=== PATIENT | male | born 1965 | race Asian ===

== ENCOUNTER 2019-01-06 08:45 | Observation (INO) | payer BC ==
[~2019-01-06] VITALS: Ht 167.6 cm; Wt 65.3 kg
[2019-01-06] MEDS ORDERED: ASPIRIN 325 MG TAB PO STA (08:57)
[2019-01-06] MEDS ORDERED: LOSA25TA12 PO (09:41)
[2019-01-06] MEDS ORDERED: FEBU40TA PO (09:42)
--- NOTE | 2019-01-06 10:13 | ERD ---
ER Documentation Chief Complaint Chief Complaint chest/shoulder pain x 5 hours HPI 53-year-old male presents the emergency department complaining of chest and shoulder pain. Patient states that he was awoken from sleep at 3 in the morning with a nonspecific, non-provoked chest pain. Pain radiated to his left shoulder and made him feel short of breath. He reported a sense of palpitations. He reported no diaphoresis or nausea. His symptoms continued and he came to the emergency department this morning for evaluation. Upon arrival, patient reports the pain is mild to moderate, but still there. ROS All systems reviewed and are negative except as per history of present illness. Medications Home Meds Reported Medications Febuxostat* (Uloric*) 40 Mg Tablet, 40 MG PO DAILY 01/06/19 Losartan Potassium* (Losartan Potassium*) 25 Mg Tablet, 25 MG PO DAILY, TAB 01/06/19 Allergies Allergies: Coded Allergies: ibuprofen (Verified Allergy, Severe, ITCHING , 01/06/19) PER PT PMhx/Soc History of Surgery: Yes (tonsillectomy) Anesthesia Reaction: No Hx Neurological Disorder: No Hx Respiratory Disorders: No Hx Cardiac Disorders: No Hx Psychiatric Problems: No Hx Miscellaneous Medical Probl: Yes (CKD, GOUT) Hx Alcohol Use: No Hx Substance Use: No Hx Tobacco Use: No Smoking Status: Never smoker FmHx Noncontributory for chief complaint Physical Exam Vitals Vital Signs Date Temp Pulse Resp B/P (MAP) Pulse Ox O2 O2 Flow FiO2 Time Delivery Rate 01/06/19 81 20 119/99 100 Room Air 09:00 (106) 01/06/19 98.2 92 22 179/86 100 08:49 (117) Physical Exam GENERAL: The patient is well developed and appropriate for usual state of health in no apparent distress HEENT: Pupils equal, round, and reactive to light. EOMI. There is no scleral icterus. NECK: C-spine is soft and supple, there is no meningismus. There is no cervical lymphadenopathy. LUNGS: Clear to auscultation bilaterally. There are no rales, wheezes or rhonchi. HEART: Regular rate and rhythm, no murmurs, clicks, rubs or gallops. ABDOMEN: Soft, non-tender, non-distended. There are bowel sounds in all four quadrants. No rebound or guarding. EXTREMITIES: There is no peripheral cyanosis or edema. No focal swelling or erythema. NEURO: The patient moves all four extremities with 5/5 strength. Cranial nerves II - XII are intact. Normal gait. Alert and oriented SKIN: There is no apparent rash or petechiae. HEME/LYMPHATIC: There is no evidence of excessive bruising or lymphedema. PSYCHIATRIC: The patient does not appear anxious or depressed. Result Diagram: 01/06/19 0916 01/06/19 0916 Results 24 hrs Laboratory Tests Test 01/06/19 09:16 White Blood Count 4.6 10^3/ul Red Blood Count 5.51 10^6/ul Hemoglobin 16.0 g/dl Hematocrit 49.1 % Mean Corpuscular Volume 89.1 fl Mean Corpuscular Hemoglobin 29.0 pg Mean Corpuscular Hemoglobin Concent 32.6 g/dl Red Cell Distribution Width 11.7 % Platelet Count 201 10^3/UL Mean Platelet Volume 10.4 fl Immature Granulocytes % 0.200 % Neutrophils % 63.4 % Lymphocytes % 28.7 % Monocytes % 6.6 % Eosinophils % 0.7 % Basophils % 0.4 % Nucleated Red Blood Cells % 0.0 /100WBC Immature Granulocytes # 0.010 10^3/ul Neutrophils # 2.9 10^3/ul Lymphocytes # 1.3 10^3/ul Monocytes # 0.3 10^3/ul Eosinophils # 0.0 10^3/ul Basophils # 0.0 10^3/ul Nucleated Red Blood Cells # 0.0 10^3/ul Sodium Level 142 mmol/L Potassium Level 3.9 mmol/L Chloride Level 103 mmol/L Carbon Dioxide Level 26 mmol/L Anion Gap 13 Blood Urea Nitrogen 22 mg/dl Creatinine 1.44 mg/dl Est Glomerular Filtrat Rate mL/min 51 mL/min Glucose Level 109 mg/dl Calcium Level 9.7 mg/dl Total Bilirubin 0.5 mg/dl Direct Bilirubin 0.00 mg/dl Indirect Bilirubin 0.5 mg/dl Aspartate Amino Transf (AST/SGOT) 25 IU/L Alanine Aminotransferase (ALT/SGPT) 30 IU/L Alkaline Phosphatase 74 IU/L Troponin I < 0.012 ng/ml Total Protein 8.1 g/dl Albumin 4.6 g/dl Globulin 3.50 g/dl Albumin/Globulin Ratio 1.31 Current Medications Medications Dose Sig/Jennifer Start Time Status Last (Trade) Ordered Route PRN Stop Time Admin Dose Reason Admin Aspirin 325 mg ONCE STAT 01/06/19 DC 01/06/19 (Aspirin) PO 08:57 09:23 01/06/19 08:58 Procedures/MDM Patient was taken to a room, seen and evaluated. Comfort measures were initiated. Diagnostic tests were ordered and reviewed. 3 LEAD RHYTHM STRIP: Normal sinus rhythm without ectopy EK lead EKG reviewed by myself: Normal Sinus Rhythm Normal [place] and intervals, LVH Nonspecific ST and T wave changes mostly appreciated inferolaterally Impression: Abnormal EKG with possible ischemia versus LVH with strain pattern RADIOLOGY: Reviewed with the radiologist CONSULTATION: Hospitalist was notified for admission REEVALUATION: 1010: Diagnostic tests were appreciated. Case was discussed with the patient and his family. Decision was made for admission. MEDICAL DECISION MAKIN-year-old male presents with new onset chest pain of uncertain etiology. Given his abnormal EKG, patient appears to be at some risk for heart disease and I feel is safe for being admitted for cardiac observation. His chest x-ray does not seem to indicate intrathoracic concerns such as aortic dissection and he has no significant risk factors for pulmonary embolism. Departure Diagnosis: Primary Impression: Chest pain Condition: Gabriel GALLOWAYMANDEEP Jan 06, 2019 10:13
[2019-01-06] MEDS ORDERED: NITROGLYCERIN (SL) 0.4 MG TAB SL PRN (11:00)
[2019-01-06] MEDS ORDERED: HYDROCODONE/APAP (5/325) TAB PO PRN (11:00)
[2019-01-06] MEDS ORDERED: NACL 0.9% 3 ML SYG IV SCH (11:00)
[2019-01-06] MEDS ORDERED: ACETAMINOPHEN 325 MG TAB PO PRN (11:00)
[2019-01-06] MEDS ORDERED: ONDANSETRON 4 MG INJ IV PRN (11:00)
[2019-01-06] MEDS ORDERED: morphine 2 MG INJ IV PRN (11:00)
[2019-01-06 13:24] VITALS: PULSE 75
--- NOTE | 2019-01-06 13:25 | RADRPT ---
Echocardiogram Report Patient Name: CHERELLE ROBERTSPatient ID: [id number] : 1965 (53y 10m)Study Date: 01/06/2019 11:39:58 AM Gender: MAccession #: [id number] Tech: DC Location: Ref.Physician: SHALINI HICKEY Height(Cm): BSA: Weight(Kg): Quality: AdequateAccount #: Procedures: Echocardiographic Report: Transthoracic echocardiogram with complete 2D, M-Mode, and doppler examination. Indications: Chest Pain. Measurements: 2D/M Mode Doppler Measurement Value Normal Range Measurement Value Normal Range LVIDd 2D 3.9 [ 4.2 - 5.8 ] cm AV Peak Rayshawn 1.1 [ 100.0 - 170.0 ] cm/sec LVIDs 2D 2.2 [ 2.5 - 4.0 ] cm AV Peak PG 5.0 [ 2.0 - 9.0 ] mmHg LVPWd 2D 0.9 [ 0.6 - 1.0 ] cm LVOT Peak Rayshawn 0.8 [ 70.0 - 110.0 ] cm/sec IVSd 2D 1.1 [ 0.6 - 1.0 ] cm LVOT Peak PG 3.0 [ 2.0 - 6.0 ] mmHg IVS/LVPW 2D 1.3 ratio MV E Peak Rayshawn 0.5 [ 60.0 - 130.0 ] cm/sec AoR Diam 2D 3.2 [ 2.6 - 3.4 ] cm MV A Peak Rayshawn 0.7 [ 100.0 - 120.0 ] cm/sec LA/Ao 2D 1 ratio MV E/A 0.8 [ 0.8 - 1.5 ] ratio LA Dimen 2D 2.5 [ 3.0 - 4.0 ] cm MV Decel Time 239 [ 104 - 258 ] msec Lat E` Rayshawn 0.1 [ 10.0 - 15.0 ] cm/sec MV E/A 0.8 [ 0.8 - 1.5 ] ratio Findings: Left Ventricle: Normal left ventricular systolic function. Normal left ventricular cavity size. Mild concentric left ventricular hypertrophy. Ejection fraction is visually estimated at 55 %. Tissue Doppler/Mitral Doppler indices are consistent with impaired relaxation (Stage I diastolic dysfunction). Right Ventricle: Normal right ventricular size. Normal right ventricular systolic function. Left Atrium: The left atrium is normal in size. Right Atrium: The right atrium is normal in size. Mitral Valve: Mitral valve leaflets appear mildly thickened. Mild mitral annular calcification. Trace mitral regurgitation. Aortic Valve: Normal appearance of the aortic valve. No significant aortic stenosis or insufficiency. Tricuspid Valve: Normal appearance of the tricuspid valve. Unable to obtain RVSP due to minimal presence of tricuspid regurgitation. Pulmonic Valve: Normal pulmonic valve appearance. Pericardium: Normal pericardium with no significant pericardial effusion. Aorta: Normal aortic root. IVC: Normal size and normal respiratory collapse consistent with normal right atrial pressure. Conclusions: Normal left ventricular systolic function. Normal left ventricular cavity size. Mild concentric left ventricular hypertrophy. Ejection fraction is visually estimated at 55 %. Tissue Doppler/Mitral Doppler indices are consistent with impaired relaxation (Stage I diastolic dysfunction). Electronically Signed By: Bridger Suggs 2019-01-06 13:25:09 PDT
[2019-01-06] MEDS ORDERED: LIDOCAINE/MYLANTA 40 ML BTL PO ONE (13:30)
[2019-01-06] MEDS ORDERED: PANTOPRAZOLE (EC) 40 MG TAB PO ONE (13:30)
--- NOTE | 2019-01-06 13:41 | HP ---
Date/Time of Note Date/Time of Note DATE: 01/06/19 TIME: 13:40 Assessment/Plan VTE Prophylaxis Pharmacological prophylaxis: other Lines/Catheters [facility] [place] Assessment/Plan Hospital Course Patient is a Spanish male with a past medical history significant for unspecified kidney disorder and subsequently on losartan and gout who presents to [facility] for sudden onset of chest pain that woke him up t his morning. Patient states that it began in the left side and has radiated to the shoulder and to the left arm. Currently patient is chest pain-free. Patient states that he follows up with a doctor on a normal basis. Patient denies tobacco or alcohol use. Patient denies nausea, vomiting, chest pain, shortness of breath, headache, leg pain, difficulty with urination or bowel movements. Objective Physical exam General: Patient is laying in bed and answers questions appropriately Mentation: Patient is alert and oriented 4, Head: Normocephalic atraumatic Eyes: EOMI, pupils reactive to light Neck: Supple, nontender, midline Respiratory: Clear to auscultation bilaterally Cardiovascular: regular rate, no obvious murmurs Gastrointestinal: non-tender to palpation, bowel sounds heard. Neurological: Moves all extremities spontaneously Skin: No new skin lesions Muscular skeletal: Mild tenderness upon palpation of left chest wall Assessment and plan Chest pain -Rule out ACS -Troponin negative so far, continue to trend -Echocardiogram pending read -EKG noted -Aspirin, statin -Likely musculoskeletal as pain is elicited with palpation Chronic kidney disease versus acute kidney injury -Unknown baseline however patient states that he is on losartan for his chronic kidney disease, it is likely that his creatinine is his baseline, however will hydrate mildly to assess. Continue losartan for now as this is likely his baseline Gout -Continue uloric Disposition -Rule out ACS, continue to trend troponins. Result Diagram: 01/06/19 0916 01/06/19 0916 Results 24hrs Laboratory Tests Test 01/06/19 09:16 White Blood Count 4.6 L Red Blood Count 5.51 Hemoglobin 16.0 Hematocrit 49.1 Mean Corpuscular Volume 89.1 Mean Corpuscular Hemoglobin 29.0 Mean Corpuscular Hemoglobin Concent 32.6 Red Cell Distribution Width 11.7 Platelet Count 201 Mean Platelet Volume 10.4 Immature Granulocytes % 0.200 Neutrophils % 63.4 Lymphocytes % 28.7 Monocytes % 6.6 Eosinophils % 0.7 Basophils % 0.4 Nucleated Red Blood Cells % 0.0 Immature Granulocytes # 0.010 Neutrophils # 2.9 Lymphocytes # 1.3 Monocytes # 0.3 Eosinophils # 0.0 Basophils # 0.0 Nucleated Red Blood Cells # 0.0 Sodium Level 142 Potassium Level 3.9 Chloride Level 103 Carbon Dioxide Level 26 Anion Gap 13 Blood Urea Nitrogen 22 H Creatinine 1.44 H Est Glomerular Filtrat Rate mL/min 51 L Glucose Level 109 Calcium Level 9.7 Total Bilirubin 0.5 Direct Bilirubin 0.00 Indirect Bilirubin 0.5 Aspartate Amino Transf (AST/SGOT) 25 Alanine Aminotransferase (ALT/SGPT) 30 Alkaline Phosphatase 74 Troponin I < 0.012 Total Protein 8.1 Albumin 4.6 Globulin 3.50 H Albumin/Globulin Ratio 1.31 Triglycerides Level 207 H Cholesterol Level 206 H LDL Cholesterol, Calculated 123 HDL Cholesterol 42 Cholesterol/HDL Ratio 4.9 HPI/ROS Admit Date/Time Admit Date/Time Jan 06, 2019 at 10:21 PMH/Family/Social Past Medical History Medications Current Medications IV Flush (NS 3 ml) 3 ml PER PROTOCOL IV ; Start 01/06/19 at 11:00 Ondansetron HCl (Zofran Inj) 4 mg Q6H PRN IV NAUSEA/VOMITING; Start 01/06/19 at 11:00 Aspirin (Aspirin) 81 mg DAILY PO ; Start 01/07/19 at 09:00 Nitroglycerin (Nitroglycerin (Sl Tab) 0.4 Mg) 1 tab Q5M PRN SL .CHEST PAIN; Start 01/06/19 at 11:00 Acetaminophen (Tylenol Tab) 650 mg Q6H PRN PO .PAIN 1-3 OR TEMP; Start 01/06/19 at 11:00 Acetaminophen/ Hydrocodone Bitart ([place] (5/325)) 1 tab Q6H PRN PO .PAIN 4-6; Start 01/06/19 at 11:00 Morphine Sulfate (morphine) 2 mg Q4H PRN IV .PAIN 7-10; Start 01/06/19 at 11:00 Atorvastatin Calcium (Lipitor) 80 mg HS PO ; Start 01/06/19 at 21:00 Febuxostat (Uloric) 40 mg DAILY PO ; Start 01/07/19 at 09:00 Losartan Potassium (Cozaar) 25 mg DAILY PO ; Start 01/07/19 at 09:00 Miscellaneous Medication (Gi Cocktail (2)) 40 ml ONCE ONCE PO ; Start 01/06/19 at 13:30; Stop 01/06/19 at 13:31 Pantoprazole (Protonix Tab) 40 mg DAILY@06 PO ; Start 01/07/19 at 06:00 Pantoprazole (Protonix Tab) 40 mg ONCE ONCE PO ; Start 01/06/19 at 13:30; Stop 01/06/19 at 13:31 Coded Allergies: ibuprofen (Verified Allergy, Severe, ITCHING , 01/06/19) PER PT Social History Smoking Status: Never smoker Exam/Review of Systems Vital Signs Vitals Vital Signs Date Temp Pulse Resp B/P (MAP) Pulse Ox O2 O2 Flow FiO2 Time Delivery Rate 01/06/19 75 13:24 01/06/19 98.0 16 130/89 100 Room Air 12:30 (103) SHALINI HICKEY Jan 06, 2019 13:41
[2019-01-06 14:00] VITALS: Ht 167.6 cm; Wt 65.3 kg
[2019-01-06] MEDS ORDERED: SOD CHLORIDE 0.9% 1,000 ML IV SCH (14:00)
[2019-01-06 15:34] VITALS: BP 107/69; PULSE 81; RESP 20
[2019-01-06 16:12] VITALS: PULSE 74
[2019-01-06 18:58] VITALS: BP 116/70; PULSE 73; RESP 20
[2019-01-06 20:00] VITALS: PULSE 71
[2019-01-06] MEDS: HEPARIN 5,000 UNIT/1 ML VIAL SC SCH (20:50)
[2019-01-06] MEDS ORDERED: ATORVASTATIN 80 MG TAB PO SCH (21:00)
[2019-01-06 23:46] VITALS: BP 104/64; PULSE 69; RESP 20
[2019-01-07] VITALS (7 sets, daily range): BP systolic 104–117; BP diastolic 60–75; PULSE 62–80; RESP 18–20
[2019-01-07] MEDS ORDERED: PANTOPRAZOLE (EC) 40 MG TAB PO SCH (06:00)
[2019-01-07] MEDS ORDERED: FEBUXOSTAT 40 MG TABLET PO SCH (09:00)
[2019-01-07] MEDS ORDERED: LOSARTAN 25 MG TAB PO SCH (09:00)
[2019-01-07] MEDS ORDERED: ASPIRIN 81 MG TAB PO SCH (09:00)
[2019-01-07] MEDS: HEPARIN 5,000 UNIT/1 ML VIAL SC SCH (09:48)
[2019-01-07] MEDS ORDERED: SOD CHLORIDE 0.9% 1,000 ML IV SCH (12:00)
--- NOTE | 2019-01-07 13:26 | DS ---
Date/Time of Note Date/Time of Note DATE: 01/07/19 TIME: 13:26 Discharge Summary Admission/Discharge Info Admit Date/Time Jan 06, 2019 at 10:21 Discharge Date/Time Patient Condition: Stable Hospital Course Patient is a venous male with a past medical history significant for unspecified kidney disorder on losartan and gout who presented to [facility] for chest pain. Patient had left-sided chest pain that radiated to his arm and patient was admitted for chest pain rule out. Patient had troponins trended which were negative x3 and also had echocardiogram which did not explain any of his acute symptoms. Patient symptoms have resolved and since pain was elicited with palpation it is likely that this pain is musculoskeletal. Patient had a EARLE score of 0 as even his chest pain was not severe and patient was recommended to follow-up with his primary care provider immediately after discharge. 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 It is likely the patient's etiology is musculoskeletal at this point however patient still should see a primary care physician and elementary spanish teacher in the outpatient setting. Patient stated that he felt these random palpitations however when asking the e d tech tech there could be no abnormal heartbeats associated with the time the patient stated that this these happened. It is likely that these were muscle spasms. Although ACS was ruled out, I offered for a elementary spanish teacher to come evaluate the patient however the patient did not want to wait an additional day and stated he will follow-up with his primary care provider. All risks of not seeing a elementary spanish teacher was explained to the patient the patient accepts all risks. Patient also has an unspecified kidney disorder and it was confirmed with his outpatient engineering specialist technician that his baseline creatinine was 1.4 approximately a few months ago. His creatinine levels here are not too far off from this baseline however they did show a slight rise. I was able to secure an appointment for patient to see his engineering specialist technician tomorrow. I gave the patient and offer to stay overnight for fluids and possible nephrology management however patient stated that since he has an appointment tomorrow he will follow-up with his engineering specialist technician and bring his records. Patient will be discharged with recommendations to take it easy at work and not to use his left shoulder for his work bags. Assessment and plan Chest pain, ruled out ACS Chronic kidney disease Gout Home Meds Reported Medications Febuxostat* (Uloric*) 40 Mg Tablet, 40 MG PO DAILY 01/06/19 Losartan Potassium* (Losartan Potassium*) 25 Mg Tablet, 25 MG PO DAILY, TAB 01/06/19 Primary Care Provider Not On Staff Doctor Time spent on discharge: > 30 minutes Pending Labs Laboratory Tests Test 01/06/19 15:18 01/06/19 21:30 01/07/19 06:04 Creatine Kinase 79 IU/L (23-200) 73 IU/L (23-200) Creatine Kinase 0.6 0.5 Index Creatinine Kinase 0.44 0.40 MB (Mass) ng/ml (0.0-2.4) ng/ml (0.0-2.4) Troponin I < 0.012 < 0.012 ng/ml (0.000-0.120) ng/ml (0.000-0.120 ) White Blood Count 5.9 10^3/ul (4.8-10.8) Red Blood Count 5.39 10^6/ul (4.70-6.10 ) Hemoglobin 15.7 g/dl (14.0-18.0) Hematocrit 48.6 % (42.0-52.0) Mean Corpuscular 90.2 Volume fl (82.0-101.0) Mean Corpuscular 29.1 Hemoglobin pg (29.0-33.0) Mean Corpuscular 32.3 Hemoglobin Concent g/dl (32.0-37.0) Red Cell 12.0 % (11.5-14.5) Distribution Width Platelet Count 175 10^3/UL (140-415) Mean Platelet 10.5 fl (7.4-10.4) Volume Immature 0.200 Granulocytes % % (0.001-0.429) Neutrophils % 58.7 % (39.0-77.0) Lymphocytes % 31.8 % (15.0-51.0) Monocytes % 7.4 % (0.0-11.0) Eosinophils % 1.4 % (0.0-7.0) Basophils % 0.5 % (0.0-2.0) Nucleated Red Blood 0.0 Cells % /100WBC (0.0-0.0) Immature 0.010 Granulocytes # 10^3/ul (0.0-0.031 ) Neutrophils # 3.4 10^3/ul (1.6-7.5) Lymphocytes # 1.9 10^3/ul (0.8-2.9) Monocytes # 0.4 10^3/ul (0.3-0.9) Eosinophils # 0.1 10^3/ul (0.0-0.5) Basophils # 0.0 10^3/ul (0.0-0.1) Nucleated Red Blood 0.0 Cells # 10^3/ul (0.0-0.0) Sodium Level 141 mmol/L (135-144) Potassium Level 4.7 mmol/L (3.5-5.1) Chloride Level 106 mmol/L (97-110) Carbon Dioxide 27 mmol/L (21-31) Level Anion Gap 8 (5-13) Blood Urea 21 mg/dl (7-20) Nitrogen Creatinine 1.57 mg/dl (0.61-1.24) Est Glomerular 46 mL/min (>60) Filtrat Rate mL/min Glucose Level 98 mg/dl (70-220) Hemoglobin A1c 5.4 % (0-5.9) Calcium Level 8.9 mg/dl (8.4-10.2) Magnesium Level 2.3 mg/dl (1.7-2.5) Total Bilirubin 0.8 mg/dl (0.2-1.3) Direct Bilirubin 0.00 mg/dl (0.00-0.20) Indirect Bilirubin 0.8 mg/dl (0-1.1) Aspartate Amino 30 IU/L (15-46) Transf (AST/SGOT) Alanine 27 IU/L (13-69) Aminotransferase (A LT/SGPT) Alkaline 57 IU/L (42-121) Phosphatase Total Protein 6.8 g/dl (6.1-8.1) Albumin 3.7 g/dl (3.3-4.9) Globulin 3.10 g/dl (1.3-3.2) Albumin/Globulin 1.19 Ratio SHALINI HICKEY Jan 07, 2019 13:26
--- NOTE | 2019-01-07 13:27 | PDOCDIS ---
Discharge Instructions CONDITION [id number] Patient Condition: [id number] Stable FOLLOW UP/APPOINTMENTS Follow-up Plan 1. Please follow-up with your primary care provider and get a referral to see a animal care taker or to obtain an outpatient stress test if needed 2. If chest pain continues please return to the ED 3. Please follow-up with your hull grinder tomorrow. SHALINI HICKEY Jan 07, 2019 13:27
== END 2019-01-07 14:34 | disposition home or self-care (01) ==
LOC: E/R 08:45 → TEL 10:21
PROVIDERS: ADMIT Internal Medicine; ATTEND Internal Medicine
DX: R07.9 Chest pain, unspecified (principal); N18.9 Chronic kidney disease, unspecified; M10.9 Gout, unspecified
CPT/HCPCS: 36415; 71045; 80053; 80061; 82550; 82553; 83036; 83735; 84484; 85025; 93005; 93306; 99285; G0378; J1644; J7030